=== PATIENT | male | born 2000 | race Caucasian/White ===

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

== ENCOUNTER 2020-03-19 11:10 | Emergency (ER) | payer MEDICAID ==
[~2020-03-19] VITALS: Ht 180.3 cm; Wt 97.7 kg
[2020-03-19 11:16] VITALS: BP 121/59; Ht 180.3 cm; Wt 97.7 kg
[2020-03-19] MEDS ORDERED: NAPROSYN500 MG PO (11:43)
[2020-03-19] MEDS ORDERED: MUPIROCIN22 GM TOPICAL (11:43)
[2020-03-19] MEDS ORDERED: KEFLEX500 MG PO (11:43)
== END 2020-03-19 12:46 | disposition home or self-care (01) ==
LOC: D.ER 11:10
DX: T23.321A Burn of third degree of single right finger (nail) except thumb, initial encounter (principal); T23.221A Burn of second degree of single right finger (nail) except thumb, initial encounter; X12.XXXA Contact with other hot fluids, initial encounter; Y93.9 Activity, unspecified; Y92.9 Unspecified place or not applicable